=== PATIENT | female | born 1975 | race Caucasian/White ===

== ENCOUNTER → 2016-08-07 | Day surgery (SDC) | payer BC ==
[2016-07-29 08:26] VITALS: Ht 162.6 cm; Wt 69.5 kg
[~2016-08-07] VITALS: Ht 162.6 cm; Wt 69.5 kg
[~2016-08-07] MED LIST: ALBU18002 INH; BIOTCAP2 PO; CETI10TA84 PO; DEXL60CA4 PO; DIPH1TAB87 PO; HYDR200T5 PO; LAMO25TA PO; LIDOCAINE HCL 2% 2 ML VIAL (20MG/ML) ONE; MIDAZOLAM HCL 1 MG/ML 2ML VIAL ONE; MONT1TAB3 PO; ONDANSETRON INJ 2 MG/ML 2 ML VIAL ONE; PROPOFOL IV EMULSION 10 MG/ML 20 ML VIAL IV ONE; SUCR1TAB29 PO; SUVO1TAB3 PO; TIZA4CAP PO; TOPI50TA16 PO
--- NOTE | 2016-08-07 15:34 | Endo History and Physical ---
History & Physical Date of Service: Aug 07, 2016. Chief Complaint: ESOPHAGITIS, GASTRITIS Referring Physician: DR. DANIELS History of Present Illness 40 yo CF who presents for EGD secondary to gastritis Past Surgical History Hx Cardiac Surgery: No Hx Internal Defibrillator: No Hx Pacemaker: No Hx Abdominal Surgery: Yes (LAP BAND PLACEMENT AND REMOVAL, ) Hx of Implantable Prosthesis: No Hx Post-Op Nausea and Vomiting: No Hx Cancer Surgery: No Hx Thoracic Surgery: No Hx Orthopedic: Yes (CERVICAL DISCECTOMY (LIMITED L AND UP AND DOWN), LT/RT BUNIONECTOMY) Hx Urinary Tract Surgery: No Family History None Social History Smoking Status: Former Smoker Hx Substance Use: No Hx Alcohol Use: No Allergies Coded Allergies: Clindamycin (Verified Allergy, Unknown, RASH, HIVES, N/V, 08/07/16) Codeine (Verified Allergy, Unknown, MIGRAINE, 08/07/16) Doxycycline (Verified Allergy, Unknown, RASH, HIVES, N/V, 08/07/16) Iopamidol (Verified Allergy, Unknown, ARM REDNESS AND HIVES S/P INFUSION, 08/07/16) Morphine (Verified Allergy, Unknown, N/V, 08/07/16) Penicillins (Verified Allergy, Unknown, RASH, HIVES, N/V, 08/07/16) Current Medications Reported Home Medications Medications Dose Route/Sig Max Daily Dose Days Date Category Dose Instructions Carafate (Sucralfate) 1 Gm Tab 1 Gm PO QID 07/29/16 Reported PT HAS NOT STARTED MEDICATION YET Belsomra (Suvorexant) 15 Mg Tab 1 Tab PO HS 07/29/16 Reported Benadryl Allergy (Diphenhydramine Hcl) 25 Mg Tab 4 Tabs PO HS 07/29/16 Reported Zyrtec (Cetirizine HCl) 10 Mg Tab 10 Mg PO AFTERNOON 07/29/16 Reported Proair Respiclick (Albuterol Sulfate) 108 Mcg/Act Aer 2 Puffs INH Q4H PRN 07/29/16 Reported Singulair (Montelukast Sodium) 10 Mg Tab 10 Mg PO AFTERNOON 07/29/16 Reported Topamax (Topiramate) 50 Mg Tab 50 Mg PO BID 07/29/16 Reported Plaquenil (Hydroxychloroquine Sulfate) 200 Mg Tab 200 Mg PO BID 07/29/16 Reported Lamictal (Lamotrigine) 25 Mg Tab 2 Tabs PO HS 07/29/16 Reported Biotin 5000 (Biotin) 5 Mg Cap 10 Mg PO HS 07/29/16 Reported Zanaflex (Tizanidine HCl) 4 Mg Cap 2-3 Tabs PO TID PRN 07/29/16 Reported Dexilant (Dexlansoprazole) 60 Mg Cap 1 Cap PO QAM 07/29/16 Reported Vital Signs Weight (Kilograms): 69.55 Height (Feet): 5 Height (Inches): 4 Date Time Temp Pulse Resp B/P Pulse Ox O2 Delivery O2 Flow Rate FiO2 08/07/16 14:40 36.4 68 20 102/54 100 Room Air Physical Exam General Appearance: WD/WN, no apparent distress Respiratory/Chest: Auscultation: breath sounds normal Cardiovascular: Heart Auscultation: RRR Abdomen: Bowel Sounds: normal Inspection & Palpation: soft, non-distended, no tenderness, guarding & rebound Assessment and Plan Assessment: 40 yo CF who presents for EGD secondary to gastritis Plan: Proceed with EGD.
--- NOTE | 2016-08-07 15:59 | GI REPORT ---
Procedure Date: 08/07/2016 3:26 PM Procedure: Upper GI endoscopy Indications: Suspected bile induced gastritis Medicines: Monitored Anesthesia Care Complications: No immediate complications. Estimated Blood Loss: Estimated blood loss: none. Procedure: Pre-Anesthesia Assessment: - Prior to the procedure, a History and Physical was performed, and patient medications and allergies were reviewed. The patient's tolerance of previous anesthesia was also reviewed. The risks and benefits of the procedure and the sedation options and risks were discussed with the patient. All questions were answered, and informed consent was obtained. Prior Anticoagulants: The patient has taken no previous anticoagulant or antiplatelet agents. ASA Grade Assessment: II - A patient with mild systemic disease. After reviewing the risks and benefits, the patient was deemed in satisfactory condition to undergo the procedure. After obtaining informed consent, the endoscope was passed under direct vision. Throughout the procedure, the patient's blood pressure, pulse, and oxygen saturations were monitored continuously. The scope was introduced through the mouth, and advanced to the second part of duodenum. The upper GI endoscopy was accomplished without difficulty. The patient tolerated the procedure well. Findings: The esophagus was normal. A small hiatus hernia was present. Localized mild inflammation characterized by erythema was found in the gastric antrum. Biopsies were taken with a cold forceps for histology. A single 7 mm mucosal papule (nodule) with no stigmata of recent bleeding was found in the gastric antrum. Biopsies were taken with a cold forceps for histology. The examined duodenum was normal. Impression: - Normal esophagus. - Small hiatus hernia. - Gastritis. Biopsied. - A single mucosal papule (nodule) found in the stomach. Biopsied. - Normal examined duodenum. Recommendation: - Resume previous diet. - Continue present medications. - Await pathology results. - Return to primary care physician as previously scheduled. Andrea KeeDO 08/07/2016 3:58:12 PM This report has been signed electronically. Note Initiated On: 08/07/2016 3:26 PM I attest to the content of the Intraoperative Record and orders documented therein, exceptions below
--- NOTE | 2016-08-07 16:00 | Discharge Instructions ---
Endoscopy Patient Instructions Date / Procedure(s) Performed Aug 07, 2016. EGD Allergy Information Coded Allergies: Clindamycin (Verified Allergy, Unknown, RASH, HIVES, N/V, 08/07/16) Codeine (Verified Allergy, Unknown, MIGRAINE, 08/07/16) Doxycycline (Verified Allergy, Unknown, RASH, HIVES, N/V, 08/07/16) Iopamidol (Verified Allergy, Unknown, ARM REDNESS AND HIVES S/P INFUSION, 08/07/16) Morphine (Verified Allergy, Unknown, N/V, 08/07/16) Penicillins (Verified Allergy, Unknown, RASH, HIVES, N/V, 08/07/16) Discharge Date / Findings Aug 07, 2016. Gastric nodule s/p biopsies Gastritis s/p biopsies Hiatal hernia Medication Instructions OK to resume all medications today as prescribed. Reported Home Medications Medications Dose Route/Sig Max Daily Dose Days Date Category Dose Instructions Carafate (Sucralfate) 1 Gm Tab 1 Gm PO QID 07/29/16 Reported PT HAS NOT STARTED MEDICATION YET Belsomra (Suvorexant) 15 Mg Tab 1 Tab PO HS 07/29/16 Reported Benadryl Allergy (Diphenhydramine Hcl) 25 Mg Tab 4 Tabs PO HS 07/29/16 Reported Zyrtec (Cetirizine HCl) 10 Mg Tab 10 Mg PO AFTERNOON 07/29/16 Reported Proair Respiclick (Albuterol Sulfate) 108 Mcg/Act Aer 2 Puffs INH Q4H PRN 07/29/16 Reported Singulair (Montelukast Sodium) 10 Mg Tab 10 Mg PO AFTERNOON 07/29/16 Reported Topamax (Topiramate) 50 Mg Tab 50 Mg PO BID 07/29/16 Reported Plaquenil (Hydroxychloroquine Sulfate) 200 Mg Tab 200 Mg PO BID 07/29/16 Reported Lamictal (Lamotrigine) 25 Mg Tab 2 Tabs PO HS 07/29/16 Reported Biotin 5000 (Biotin) 5 Mg Cap 10 Mg PO HS 07/29/16 Reported Zanaflex (Tizanidine HCl) 4 Mg Cap 2-3 Tabs PO TID PRN 07/29/16 Reported Dexilant (Dexlansoprazole) 60 Mg Cap 1 Cap PO QAM 07/29/16 Reported Provider Instructions Activity Restrictions - No exercising or heavy lifting for 24 hours. - Do not drink alcohol the day of the procedure. - Do not drive a car or operate machinery until the day after the procedure. - Do not make any important decisions or sign important papers in 24 hours after the procedure. Following Day: - Return to full activity which may include returning to work/school. Diet Start your diet with liquids and light foods (jello, soup, juice, toast). Then eat your usual diet if not nauseated. Treatment For Common After Affects For mild abdominal pain, bloating, or excessive gas: - Rest - Eat lightly - Lie on right side Follow-Up Information Follow-up with DR. DANIELS as scheduled Anesthesia Information What You Should Know You have had a procedure that required some medicine to reduce anxiety and discomfort. This treatment is called moderate sedation. After receiving the treatment, you may be sleepy, but you will be able to breathe on your own. The effects of the treatment may last for several hours. Follow these instructions along with Activity/Diet recommendations noted above: * Do NOT do anything where dizziness or clumsiness would be dangerous. * Rest quietly at home today, then you can be up and about tomorrow. * Have a responsible person stay with you the rest of today. * You may have had an I.V. today. If so, you may take the dressing off later today. Recommendations Call your doctor if: * Trouble breathing * Continuous vomiting for more than 24 hours * Temperature above 101 degrees * Severe abdominal pain or bloating * Pain not relieved by pain medicine ordered * There is increased drainage or redness from any incision * A large amount of rectal bleeding greater than 2-3 tablespoons. (If you had a polyp/s removed or have hemorrhoids, a small amount of blood - from the rectum is to be expected.) * You have any unanswered questions or concerns. IN THE EVENT OF A SERIOUS EMERGENCY, GO TO THE NEAREST EMERGENCY ROOM Your discharge instructions were prepared by provider Andrea Kee. Patient Instructions Signature Page Gypsy Sanchez Patient (or Guardian) Signature/Date: I have read and understand the instructions given to me by my caregivers. Caregiver/RN/Doctor Signature/Date: The above-named patient and/or guardian has received patient instructions on this date. + Original Patient Signature Page (only) stays with chart. Please make copy for patient.
--- NOTE | 2016-08-07 16:23 | Anesthesiology Progress Note ---
Anesthesia Post Op Note Date & Time Aug 07, 2016 at 16:22 Vital Signs Pain Intensity: 0 Vital Signs Past 12 Hours Date Time Temp Pulse Resp B/P Pulse Ox O2 Delivery O2 Flow Rate FiO2 08/07/16 16:06 69 18 97/61 100 Room Air 08/07/16 15:52 71 16 89/46 98 Room Air 08/07/16 14:40 36.4 68 20 102/54 100 Room Air Notes Mental Status: alert / awake / arousable, participated in evaluation Pt Amnestic to Procedure: Yes Nausea / Vomiting: adequately controlled Pain: adequately controlled Airway Patency, RR, SpO2: stable & adequate BP & HR: stable & adequate Hydration State: stable & adequate Anesthetic Complications: no major complications apparent
[2016-08-07 16:24] VITALS: BP 104/64; PULSE 77; O2SAT 100
== END | disposition home or self-care (01) ==
LOC: C.GI 14:22
PROVIDERS: ATTEND Internal Medicine
DX: K29.70 Gastritis, unspecified, without bleeding (principal); K44.9 Diaphragmatic hernia without obstruction or gangrene; Z87.891 Personal history of nicotine dependence; Z98.84 Bariatric surgery status; Z79.899 Other long term (current) drug therapy